=== PATIENT | female | born 1955 | race Caucasian/White ===

== ENCOUNTER 2018-12-15 18:42 | Inpatient (IN) | payer OTHER ==
[~2018-12-15] VITALS: Ht 160 cm; Wt 63.0 kg
--- NOTE | 2018-12-15 19:04 | NUR ---
[facility] CP SINCE 1315 HOURS. VOMITED X1 AT HOME. PATIENT A/OX4, AT BEDSIDE, KEPT COMFORTABLE IN BED, PLACED IN THE MONITOR. PER PATIENT, CHEST PAIN HAS IMPROVED SLIGHTLY. MD AT BEDSIDE FOR EVAL.
[2018-12-15] MEDS ORDERED: IV NS 0.9% 1,000 ML BAG IV ONE ×2 (19:30→21:30)
[2018-12-15 19:35] LABS: BASOPHILS % (AUTO) 0.5 % (0.0-2.0); EOSINOPHILS % (AUTO) 1.2 % (0.0-6.0); HEMATOCRIT 40 % (33-45); HEMOGLOBIN 13.6 g/dL (11.5-14.8); LYMPHOCYTES # (AUTO) 1.8 /CMM (0.8-4.8); LYMPHOCYTES % (AUTO) 19.5 % (20.0-44.0); MEAN CORPUSCULAR HGB CONC 34 g/dl (31.0-36.0); MEAN CORPUSCULAR VOLUME 92 fL (82-100); MONOCYTES # (AUTO) 0.6 /CMM (0.1-1.30); MONOCYTES % (AUTO) 6.8 % (2.0-12.0); NEUTROPHILS # (AUTO) 6.7 /CMM (1.8-8.9); PLATELET COUNT (AUTO) 245 /CMM (150-450); RED BLOOD CELL COUNT(AUTO) 4.29 MIL/uL (4.0-5.2); WHITE BLOOD COUNT (AUTO) 9.2 K/uL (4.3-11.0)
--- NOTE | 2018-12-15 19:46 | NUR ---
ENDORSED TO CECILIA CHRISTINE FOR JUSTINO.
[2018-12-15 19:48] LABS: ALANINE AMINOTRANSFERASE 140 U/L (12-78); ALBUMIN 3.7 g/dL (3.4-5.0); ALKALINE PHOSPHATASE 119 U/L (46-116); ASPARTATE AMINOTRANSFERASE 250 U/L (15-37); BILIRUBIN,DIRECT 0.9 mg/dL (0.0-0.2); CALCIUM, SERUM 8.8 mg/dL (8.5-10.1); CARBON DIOXIDE 31 mmol/L (21-32); CHLORIDE 107 mmol/L (98-107); CREATININE 0.9 mg/dL (0.6-1.3); GLUCOSE 123 mg/dL (74-106); POTASSIUM 3.7 mmol/L (3.5-5.1); SODIUM SERUM 144 mmol/L (136-145); TOTAL PROTEIN, SERUM 7.2 g/dL (6.4-8.2); UREA NITROGEN, BLOOD 12 mg/dL (7-18)
[2018-12-15 19:49] LABS: LIPASE 7228 U/L (73-393)
--- NOTE | 2018-12-15 20:32 | NUR ---
CALLED [facility] OCCUPATIONAL PHYSICIAN DOCTOR PAGED
[2018-12-15 20:38] LABS: APPEARANCE,URINE Clear (CLEAR); BILIRUBIN,URINE Negative (NEGATIVE); BLOOD, URINE Negative Ery/uL (NEGATIVE); COLOR,URINE Yellow (YELLOW); KETONES,URINE Negative (NEGATIVE); LEUKOCYTE ESTERASE ,URINE Negative (NEGATIVE); NITRITE, URINE Negative (NEGATIVE); PROTEIN,URINE Negative (NEGATIVE); UGLUCOSE Negative (NEGATIVE)
--- NOTE | 2018-12-15 21:19 | NUR ---
DR. BARBIE ALAS.
[2018-12-15] MEDS ORDERED: ONDANSETRON HCL/PF - ER 4 MG/2 ML VIAL IV ONE (21:30)
[2018-12-15] MEDS ORDERED: MORPHINE SULFATE INJ 2 MG/ML DISP.SYRIN IV ONE (21:30)
[2018-12-15] MEDS ORDERED: ONDANSETRON HCL/PF 4 MG/2 ML VIAL ONE (21:33)
[2018-12-15] MEDS ORDERED: MORPHINE SULFATE INJ 4 MG/ML DISP.SYRIN ONE (21:34)
--- NOTE | 2018-12-15 21:56 | NUR ---
CALLED DR. FITZGERALD AND LEFT MESSAGE
--- NOTE | 2018-12-15 22:14 | NUR ---
BED 321-1
[2018-12-15] MEDS ORDERED: PANT20TA2 PO (22:19)
--- NOTE | 2018-12-15 22:32 | NUR ---
REPORT GIVEN TO AGATHA CHRISTINE FOR JUSTINO.
--- NOTE | 2018-12-15 22:50 | NUR ---
MS RN NOTE DR. FITZGERALD CALLED FLOOR AWARE OF PT'S ARRIVAL TO FLOOR, STATES THAT T.O. GIVEN TO ER STAFF.
[2018-12-15 22:54] VITALS: BP 122/77
--- NOTE | 2018-12-15 22:54 | NUR ---
MS RN NOTE PT ARRIVED TO UNIT VIA W/C ACCOMPANIED BY ER STAFF. PT IN STABLE CONDITION A&O X4, ABLE TO MAKE NEEDS KNOWN. NO SIGNS OF SOB OR DISTRESS NO C/O PAIN. BODY CHECK DONE, AND BELONGINGS ACCOUNTED AND SIGNED FOR. IV SITE ON LAC PATENT AND INTACT. ALL CURRENT NEEDS MET. BED LOW, LOCKED, UPPER RAILS UP, AND CALL LIGHT WITHIN REACH. WILL CONT OT MONITOR.
[2018-12-15] MEDS ORDERED: ONDANSETRON HCL/PF 4 MG/2 ML VIAL IV PRN (23:30)
[2018-12-15] MEDS ORDERED: HYDROMORPHONE 1 MG/1 ML DISP.SYRIN IV PRN ×2 (23:30)
[2018-12-16] MEDS ORDERED: IV NS 0.9% 1,000 ML IV PRN
--- NOTE | 2018-12-16 06:35 | NUR ---
MS RN NOTE PT IN STABLE CONDITION A&O X4, ABLE TO MAKE NEEDS KNOWN. NO SIGNS OF SOB OR DISTRESS NO C/O PAIN. IV SITE ON LAC PATENT AND INTACT IVF INFUSING. ALL CURRENT NEEDS MET. BED LOW, LOCKED, UPPER RAILS UP, AND CALL LIGHT WITHIN REACH. WILL CONT OT MONITOR AND ENDORSE TO NEXT SHIFT FOR JUSTINO.
[2018-12-16 07:19] LABS: BASOPHILS % (AUTO) 0.5 % (0.0-2.0); EOSINOPHILS % (AUTO) 3.6 % (0.0-6.0); HEMATOCRIT 37 % (33-45); HEMOGLOBIN 12.6 g/dL (11.5-14.8); LYMPHOCYTES % (AUTO) 34.8 % (20.0-44.0); MEAN CORPUSCULAR HGB CONC 34 g/dl (31.0-36.0); MEAN CORPUSCULAR VOLUME 94 fL (82-100); MONOCYTES # (AUTO) 0.4 /CMM (0.1-1.30); MONOCYTES % (AUTO) 7.9 % (2.0-12.0); NEUTROPHILS % (AUTO) 53.2 % (43.0-81.0); PLATELET COUNT (AUTO) 215 /CMM (150-450); RED BLOOD CELL COUNT(AUTO) 3.98 MIL/uL (4.0-5.2); WHITE BLOOD COUNT (AUTO) 5.6 K/uL (4.3-11.0)
[2018-12-16 07:24] LABS: ALBUMIN 3.1 g/dL (3.4-5.0); BILIRUBIN,TOTAL 2.7 mg/dL (0.2-1.0); CALCIUM, SERUM 8.2 mg/dL (8.5-10.1); CREATININE 0.9 mg/dL (0.6-1.3); POTASSIUM 3.8 mmol/L (3.5-5.1); TOTAL PROTEIN, SERUM 6.1 g/dL (6.4-8.2)
[2018-12-16 08:00] VITALS: BP 128/73
--- NOTE | 2018-12-16 08:00 | NUR ---
MS/RN AM SHIFT INITIAL NOTES RECEIVED PT AWAKE SITTING IN BED, PT A/O X 4, NO ACUTE DISTRESS NOTED AT THIS TIME, DENIES ANY PDSNG9OR. ON ROOM AIR SATURATING @ 96% LUNG SOUNDS CLEAR, RESPIRATIONS EVEN & UNLABORED. WITH ON GOING IV INFUSION OF NS @ 100CC/HR, IV SITE PATENT WITH NO S/S OF INFECTION. SPOKE TO PT REGARDING THE PLAN OF CARE, ALSO GIVEN PRINTED EDUCATIONAL MATERIAL FOR ERCP. PT IS COMFORTABLE, MONITORING CONTINUED. CL WITHIN REACHED AND SAFETY MAINTAINED.
[2018-12-16] MEDS ORDERED: CYAN10009 PO (08:31)
[2018-12-16] MEDS ORDERED: ACET-868 PO (08:31)
--- NOTE | 2018-12-16 12:00 | NUR ---
MS/RN NOON ROUNDS NO ACUTE CHANGE OF CONDITION. MONITORING CONTINUED.
--- NOTE | 2018-12-16 15:03 | NUR ---
MS/RN ROUNDS - DR. FITZGERALD PT SEEN & EXAMINED BY DR. FITZGERALD, EXPLAINED ERCP AND MRCP PROCEDURES TO PT, PT VERBALIZED UNDERSTANDING. NO NEW ORDERS RECEIVED AT THIS TIME. MONITORING CONTINUED.
[2018-12-16 16:00] VITALS: BP 124/78
--- NOTE | 2018-12-16 18:00 | NUR ---
MS/FROZEN FOOD SELECTOR REPORT REPORT GIVEN TO AMAYA BOYLE RN OF [facility]. EXPECTED TIME OF WATER SANDER @ 1900.
[2018-12-16] MEDS ORDERED: IV 1/2NS 1000 ML 1,000 ML IV PRN (18:30)
--- NOTE | 2018-12-16 18:42 | NUR ---
MS/HAT PARTS CUTTER MACHINE PICK-UP REPORT AND DISCHARGE DOCUMENTS GIVEN TO TRANSPORT PERSONNEL. PERSONAL BELONGINGS RETURNED, INVENTORY LOG SIGNED OFF. IV SITE INTACT, PATENT WITH NO S/S OF INFECTION. PT LEFT MS UNIT VIA GURNEY ACCOMPANIED BY HER IN STABLE CONDITION.
== END 2018-12-16 18:50 | disposition short-term general hospital (02) | DRG 282 ==
LOC: ER 18:45 → MED 22:27
PROVIDERS: ADMIT Internal Medicine; ATTEND Internal Medicine
DX: K85.10 Biliary acute pancreatitis without necrosis or infection (principal); K21.9 Gastro-esophageal reflux disease without esophagitis; K80.20 Calculus of gallbladder without cholecystitis without obstruction; K85.20 Alcohol induced acute pancreatitis without necrosis or infection; Z82.49 Family history of ischemic heart disease and other diseases of the circulatory system
CPT/HCPCS: 36415; 71045-TC; 76700-TC; 80048-TC; 80053-TC; 80074; 80076-TC; 81000-TC; 82150-TC; 83690-TC; 84484-TC; 85025-TC; 85378-TC; 85730-TC; 87081-TC; 87086-TC; G0378; G0480; J1170; J2270; J2405; J7030

== ENCOUNTER 2021-05-03 19:28 | Emergency (ER) | payer MEDICARE, OTHER ==
[~2021-05-03 19:28] MED LIST: ACET-868 PO; CYAN-51 PO; PANT20TA2 PO
--- NOTE | 2021-05-03 22:18 | NUR ---
CALLED FOR TRIAGE NOT IN WAITING ROOM.
--- NOTE | 2021-05-03 23:19 | NUR ---
called for triage not in waitingroom.
== END 2021-05-03 23:20 | disposition left against medical advice (07) ==
LOC: ER 19:31
DX: Z53.21 Procedure and treatment not carried out due to patient leaving prior to being seen by health care provider (principal)

== ENCOUNTER 2021-08-20 01:19 | Emergency (ER) | payer MEDICARE, OTHER ==
[~2021-08-20] VITALS: Ht 160 cm; Wt 62.6 kg
--- NOTE | 2021-08-20 01:28 | NUR ---
PT BIBHUSBAND FROM HOME C/O COUGH FOR PAST 2 WEEK, EPIGASTIC PAIN. PT A/OX4. TOLERATING R/A WELL AT 96%. CONNECTED PT TO POX AND MONITOR.
--- NOTE | 2021-08-20 02:01 | NUR ---
LAW SPICER AT PT'S BEDSIDE
[2021-08-20] MEDS ORDERED: MAG HYDROX/AL HYDROX/SIMETH 30 ML UDC ONE (02:04)
[2021-08-20] MEDS ORDERED: LIDOCAINE VISCOUS 2% UD 15 ML UDC ONE (02:04)
[2021-08-20] MEDS ORDERED: GUAIFENESIN LA 600 MG TABLET.SA PO ONE ×2 (02:05→02:30)
[2021-08-20] MEDS ORDERED: LIDOCAINE VISCOUS 2% UD 15 ML UDC MM ONE (02:30)
[2021-08-20] MEDS ORDERED: MAG HYDROX/AL HYDROX/SIMETH 30 ML UDC PO ONE (02:30)
[2021-08-20] MEDS ORDERED: LEVO750T46 PO (03:47)
[2021-08-20] MEDS ORDERED: GUAI1TBM19 PO (03:47)
[2021-08-20] MEDS ORDERED: BENZ-13 PO (03:47)
--- NOTE | 2021-08-20 03:57 | NUR ---
Patient discharged to home in stable condition. Written and verbal after care instructions given. Patient verbalizes understanding of instruction.
[2021-08-20 03:58] VITALS: BP 137/79
[2021-08-26] MEDS ORDERED: ACET-907 PO (13:47)
== END 2021-08-20 03:59 | disposition home or self-care (01) ==
LOC: ER 01:21
DX: J18.9 Pneumonia, unspecified organism (principal); Z79.2 Long term (current) use of antibiotics; Z79.899 Other long term (current) drug therapy
CPT/HCPCS: 71045-TC

== ENCOUNTER 2021-08-23 23:16 | Inpatient (IN) | payer MEDICARE, OTHER ==
[~2021-08-23] VITALS: Ht 160 cm; Wt 61.7 kg
[~2021-08-23 23:16] MED LIST changes: +BENZ-13 PO; +GUAI1TBM19 PO; +LEVO750T46 PO
--- NOTE | 2021-08-23 23:32 | NUR ---
PRESENTED TO THE ER FOR C/O SOB AND L SIDED RIBS/ BREAST PAIN SINCE YESTERDAY. PT WAS SEEN AT [facility] ER ON 08/20 W/ DX ON PNA. CURRENTLY ON LEVAQUIN PO. AFEBRILE. PT WAS PLACED IN BED 3 ER, ON MONITOR. SATTING 91% ON RA. PT WAS PLACED ON 2 L OF O2 VIA NC, SATURATION INCREASED TO 95%. FULLY VACCINATED FOR COVID W/ BOOSTER. MADE AWARE.
--- NOTE | 2021-08-23 23:35 | NUR ---
DR ANDINO AT BED SIDE
[2021-08-23] MEDS ORDERED: CEFTRIAXONE 1GM BAG (ER ONLY) 50 ML IV ONE (23:37)
--- NOTE | 2021-08-23 23:40 | NUR ---
20G IV LINE INITIATED IN R AC. BLOOD AND CULTURES DRAWN AND SENT TO LAB.
[2021-08-23] MEDS ORDERED: ONDANSETRON HCL/PF 4 MG/2 ML VIAL ONE (23:44)
[2021-08-23] MEDS ORDERED: HYDROMORPHONE 1 MG/1 ML DISP.SYRIN ONE (23:45)
[2021-08-24] MEDS ORDERED: ONDANSETRON HCL/PF - ER 4 MG/2 ML VIAL IV ONE
[2021-08-24] MEDS ORDERED: LEVOFLOXACIN 750 MG /D5W 150ML 150 ML IV ONE
[2021-08-24] MEDS ORDERED: CEFTRIAXONE 1GM BAG (ER ONLY) 50 ML IV ONE
[2021-08-24] MEDS ORDERED: HYDROMORPHONE 1 MG/1 ML DISP.SYRIN IV ONE
--- NOTE | 2021-08-24 | NUR ---
XRAY AT BEDSIDE
--- NOTE | 2021-08-24 | NUR ---
MRSA SWAB COLLECTED AND SENT TO LAB. PATIENT'S BELONGINGS LIST DONE.
--- NOTE | 2021-08-24 00:01 | NUR ---
COVID TESTS SWABBED AND SENT TO LAB.
[2021-08-24 00:09] LABS: BASOPHILS % (AUTO) 0.5 % (0.0-2.0); EOSINOPHILS % (AUTO) 8.5 % (0.0-6.0); HEMATOCRIT 42 % (33-45); HEMOGLOBIN 14.1 g/dL (11.5-14.8); LYMPHOCYTES # (AUTO) 2.7 K/uL (0.8-4.8); LYMPHOCYTES % (AUTO) 25.3 % (20.0-44.0); MEAN CORPUSCULAR HGB CONC 34 g/dl (31.0-36.0); MEAN CORPUSCULAR VOLUME 91 fL (82-100); MONOCYTES # (AUTO) 0.5 K/uL (0.1-1.30); MONOCYTES % (AUTO) 4.5 % (2.0-12.0); NEUTROPHILS # (AUTO) 6.5 K/uL (1.8-8.9); NEUTROPHILS % (AUTO) 61.2 % (43.0-81.0); PLATELET COUNT (AUTO) 303 K/uL (150-450); RED BLOOD CELL COUNT(AUTO) 4.56 MIL/uL (4.0-5.2); WHITE BLOOD COUNT (AUTO) 10.6 K/uL (4.3-11.0)
--- NOTE | 2021-08-24 00:09 | NUR ---
SPUTUM CULTURE COLLECTED AND SENT TO LAB
--- NOTE | 2021-08-24 00:09 | NUR ---
UPDATED VALLECILLO () ON PT'S STATUS [phone]
[2021-08-24 00:54] LABS: CALCIUM, SERUM 8.9 mg/dL (8.5-10.1); CARBON DIOXIDE 28 mmol/L (21-32); CHLORIDE 94 mmol/L (98-107); GLUCOSE 121 mg/dL (74-106); POTASSIUM 3.5 mmol/L (3.5-5.1); SODIUM SERUM 130 mmol/L (136-145); UREA NITROGEN, BLOOD 8 mg/dL (7-18)
[2021-08-24 01:02] LABS: ALANINE AMINOTRANSFERASE 26 U/L (12-78); ALKALINE PHOSPHATASE 106 U/L (46-116); ASPARTATE AMINOTRANSFERASE 14 U/L (15-37); BILIRUBIN,DIRECT 0.1 mg/dL (0.0-0.2); BILIRUBIN,TOTAL 0.5 mg/dL (0.2-1.0)
[2021-08-24] MEDS ORDERED: IOHEXOL-350 100 ML VIAL IV ONE (01:23)
[2021-08-24] MEDS ORDERED: IV NS 0.9% 250 ML IV ONE (01:23)
--- NOTE | 2021-08-24 01:26 | NUR ---
PT TAKEN TO CT VIA QI
--- NOTE | 2021-08-24 01:39 | NUR ---
PT RETURNED FROM CT
[2021-08-24] MEDS ORDERED: diphenhydrAMINE HCL 50 MG/ML VIAL ONE (01:46)
[2021-08-24] MEDS ORDERED: METOCLOPRAMIDE HCL 10 MG/2 ML VIAL ONE (01:46)
[2021-08-24] MEDS ORDERED: diphenhydrAMINE HCL 50 MG/ML VIAL IV ONE (02:00)
[2021-08-24] MEDS ORDERED: METOCLOPRAMIDE HCL 10 MG/2 ML VIAL IV ONE (02:00)
--- NOTE | 2021-08-24 03:04 | NUR ---
PT SLEEPING COMOFORTABLY, EASILY [place] BREATHING EVEN AND UNLABORED. PT ON MONITOR AND ALL V/S STABLE. CALL LIGHT WITHIN REACH.
[2021-08-24] MEDS ORDERED: MAGNESIUM HYDROXIDE 30 ML UDC PO PRN (05:30)
[2021-08-24] MEDS ORDERED: ONDANSETRON HCL/PF 4 MG/2 ML VIAL IVP PRN (05:30)
[2021-08-24] MEDS ORDERED: MAG HYDROX/AL HYDROX/SIMETH 30 ML UDC PO PRN (05:30)
[2021-08-24] MEDS ORDERED: ACETAMINOPHEN 325 MG TABLET PO PRN (05:30)
[2021-08-24] MEDS ORDERED: ENOXAPARIN SODIUM 40 MG/0.4 ML DISP.SYRIN SQ SCH (06:00)
[2021-08-24] MEDS ORDERED: ENOXAPARIN SODIUM 40 MG/0.4 ML DISP.SYRIN SQ ONE (06:12)
--- NOTE | 2021-08-24 07:35 | NUR ---
PT LYING IN BED, AAOX4, BREATHIGN EVEN AND UNLABORED, NO PRESENT COMPLAINTS
[2021-08-24] MEDS: IV NS 0.9% 1,000 ML IV PRN ×2 (07:36→22:16)
[2021-08-24] MEDS ORDERED: BENZ-38 PO (08:44)
[2021-08-24] MEDS ORDERED: GUAI1TBM19 PO (08:44)
[2021-08-24] MEDS ORDERED: LEVO750T46 PO (08:44)
--- NOTE | 2021-08-24 09:13 | NUR ---
PT SITTING IN BED, BLANKETS GIVEN, DROPPED OFF MAGAZINE FOR PT TO READ
--- NOTE | 2021-08-24 10:43 | NUR ---
PT SITTING IN BED COMFORTABLY NO PRESENT COMPLAINTS, NEEDS MET
--- NOTE | 2021-08-24 12:07 | NUR ---
PT SITTING IN BED COMFORTABLY, READING MAGAZINE. AAOX4. NO PRESENT COMPLAINTS
--- NOTE | 2021-08-24 13:01 | NUR ---
PT LAYIGN IN BED COMFORTABLY, USING HER PHONE, VS STABLE
--- NOTE | 2021-08-24 14:08 | NUR ---
PT AMBULATED TO RESTROOM AND RETURNED. CONNECTED TO MONITOR. VS STABLE
--- NOTE | 2021-08-24 15:04 | NUR ---
IV FLUIDS INFUSING, PT TOLERATING WELL
--- NOTE | 2021-08-24 16:12 | NUR ---
PT SITTING IN BED COMFORTABLY
--- NOTE | 2021-08-24 17:15 | NUR ---
VS STABLE, AAOX4, PT USING CELL PHONE
--- NOTE | 2021-08-24 18:35 | NUR ---
PT REFUSED TB QUANTIFERON GOLD TEST
--- NOTE | 2021-08-24 19:55 | NUR ---
RECIEVED ROOM 109
--- NOTE | 2021-08-24 21:45 | NUR ---
REPORT GIVEN TO RICARDO
--- NOTE | 2021-08-24 21:51 | NUR ---
PTWAS TRANSFERRED TO 109 UNDER ACLS
[2021-08-24 22:00] VITALS: BP 122/67
--- NOTE | 2021-08-24 22:00 | NUR ---
FUR JOINER NOTES, RECEIVED 65 YEARS OLD FEMALE ADMITTED FROM ER DEPARTMENT,Richard FLORES ACCOMPANIED BY 2 NURSES, PATIENT UNDER MEDICAL SERVICES OF [facility]AUGHN BLEVINS NP, WITH ADMITTING DX HYPOXIA, PATIENT A/O X4, ON 2LPM VIA NC WITH O2 >95%, SLIGHTLY SOB UPON ADMISSION, C/O LEFT SIDED PAIN, WILL ADMINISTER MEDICATION ORDERED, AFEBRILE, SKIN INTACT, AMBULATORY, IV SITE IN RIGH AC 18G PATENT AND INTACT, IVF INFUSING ORDERED, BED S/R UP X2, BED LOCKED AND LOWEST POSITION, CALL LIGHT W/I REACH, WILL CONTINUE TO MONITOR CLOSELY.
[2021-08-24] MEDS: MORPHINE SULFATE INJ 2 MG/ML DISP.SYRIN IV PRN (22:21)
[2021-08-25] VITALS: BP 118/69
[2021-08-25 04:00] VITALS: BP 113/66
[2021-08-25] MEDS: IV NS 0.9% 1,000 ML IV PRN ×2 (04:59→19:59)
[2021-08-25] MEDS: MORPHINE SULFATE INJ 2 MG/ML DISP.SYRIN IV PRN ×2 (05:10→20:01)
[2021-08-25 06:52] LABS: BASOPHILS # (AUTO) 0.1 K/uL (0.0-0.2); BASOPHILS % (AUTO) 0.7 % (0.0-2.0); HEMATOCRIT 38 % (33-45); HEMOGLOBIN 12.9 g/dL (11.5-14.8); LYMPHOCYTES % (AUTO) 23.5 % (20.0-44.0); MEAN CORPUSCULAR HGB CONC 34 g/dl (31.0-36.0); MEAN CORPUSCULAR VOLUME 91 fL (82-100); MONOCYTES # (AUTO) 0.5 K/uL (0.1-1.30); MONOCYTES % (AUTO) 6.2 % (2.0-12.0); NEUTROPHILS # (AUTO) 3.4 K/uL (1.8-8.9); NEUTROPHILS % (AUTO) 40.1 % (43.0-81.0); PLATELET COUNT (AUTO) 267 K/uL (150-450); RED BLOOD CELL COUNT(AUTO) 4.15 MIL/uL (4.0-5.2); WHITE BLOOD COUNT (AUTO) 8.4 K/uL (4.3-11.0)
[2021-08-25 07:20] LABS: EOSINOPHILS % (AUTO) 29.5 % (0.0-6.0)
--- NOTE | 2021-08-25 07:25 | NUR ---
RN NOTE REPORT REC'D AT BEDSIDE FROM RICARDO CHRISTINE. PT IS AWAKE, ALERT, OX4. IN NO ACUTE DISTRESS. NO SOB. O2 AT 2LPM VIA NC. SAT AT97%. SR 75 ON TELE MONITOR. DENIES ANY NEED OR PAIN AT THIS TIME. IVF INFUSING WITHOUT DIFFICULTY ON RAC. SAFETY AND ISOLATION PRECAUTIONS OBSERVED. CALL LIGHT WITHIN REACH. WILL CONT. TO MONITOR.
[2021-08-25 07:29] LABS: CALCIUM, SERUM 8.8 mg/dL (8.5-10.1); CREATININE 0.9 mg/dL (0.6-1.3); MAGNESIUM 2.1 mg/dL (1.8-2.4); PHOSPHORUS 3.9 mg/dL (2.5-4.9); POTASSIUM 3.9 mmol/L (3.5-5.1)
[2021-08-25] MEDS: PANTOPRAZOLE 40 MG TABLET.DR PO SCH (08:12)
[2021-08-25] MEDS ORDERED: IV NS 0.9% 250 ML IV ONE (08:57)
[2021-08-25] MEDS ORDERED: IOHEXOL-300 100 ML VIAL IV ONE (08:57)
[2021-08-25] MEDS ORDERED: CT SWABBABLE VALVE TRANS SET 1 EA INFUS.SET MC ONE (08:57)
[2021-08-25 09:11] LABS: BAND % (MANUAL) 1 % (0.0-5.0); EOSINOPHILS % (MANUAL) 27 % (0-4); LYMPHOCYTES % (MANUAL) 24 % (16-48); MONOCYTES % (MANUAL) 6 % (0-11.0); NEUTROPHILS % (MANUAL) 42 (42-76)
--- NOTE | 2021-08-25 10:30 | NUR ---
RN NOTE PER CN KENYA ADVISE, PT WILL BE MOVED TO 2ND FLOOR. THUS TRANSFERRED PT VIA W/C WITH ALL HER BELONGINGS IN STABLE CONDITION. REPORT GIVEN TO AFIA Jewell RN.
[2021-08-25 13:52] VITALS: BP 141/70
--- NOTE | 2021-08-25 14:45 | NUR ---
RN NOTES RECEIVED 65 YEARS OLD FEMALE ADMITTED FROM [facility] DEPT, OXYGEN READING BETWEEN 94-98% PATIENT A/O X4, ON 2LPM VIA NC WITH O2, SOB ON AND OFF, C/O LEFT SIDED PAIN ON A SCALE OF 1 OUT OF 0-10 , AFEBRILE, SKIN INTACT, AMBULATORY, IV SITE IN RIGHT AC 18G PATENT - INTACT, IVF INFUSING ORDERED, BED S/R UP X2, BED WHEELS LOCKED AND BED LOWEST POSITION, CALL LIGHT WITHIN REACH, WILL CONTINUE TO MONITOR CLOSELY.
--- NOTE | 2021-08-25 18:57 | NUR ---
RN Notes repositioned for comfort pt able to help, bed linens changed, pt NPO strict at midnight 08/25/2021 for procedure in am, iv site intact easy to flush, pt able to make needs know A&O x 4, compliant with care and NPO, had sips of water and ice chips after breakfast, bed wheels locked, safety alarm on , educated to ask for help to transfer when in need of bath room, able to use call light and make needs known, tended to in a timely manner, will endorse NPO status to oncoming nurse.
[2021-08-25 20:00] VITALS: BP 120/59
[2021-08-26] VITALS: BP 132/78
[2021-08-26 04:00] VITALS: BP 141/59
--- NOTE | 2021-08-26 06:42 | NUR ---
NATURAL SCIENCES DEPARTMENT CHAIR NOTES AWAKE & RESPONSIVE. NOT IN ANY DISTRESS. NO SOB NOTED. DENIES ANY PAIN OR DISCOMFORT AT THIS TIME. ON TELE SR @ 75 WITH IVF INFUSING WELL. MONITORED ACCORDINGLY. CALL LIGHT WITHIN REACH. BED IN LOWEST POSITION. SR UP X 2 FOR SAFETY. WILL ENDORSE TO NEXT SHIFT.
--- NOTE | 2021-08-26 07:18 | NUR ---
SENIOR EDUCATION SPECIALIST OPENING NOTES RECEIVED PATIENT ALERT AND ORIENTED X4 WITH NO SIGNS OF DISTRESS. PATIENT ON OXYGEN AT 2 LPM VIA NASAL CANULA WITH AWAKE & RESPONSIVE. DENIES ANY PAIN OR DISCOMFORT AT THIS TIME. WITH IV ACCESS ON RIGHT AC 18 WITH IVF NS AT 75ML/HR. CALL LIGHT WITHIN REACH. BED IN LOWEST POSITION. SR UP X 3 WITH BED ALARM ON FOR SAFETY. WILL CONTINUE TO MONITOR PATIENT.
[2021-08-26] MEDS: PANTOPRAZOLE 40 MG TABLET.DR PO SCH (07:30)
--- NOTE | 2021-08-26 09:00 | NUR ---
OPTICAL FABRICATION TECHNICIAN NOTE SEEN BY DR. QUIROZ AND DR. SANDERSON.
--- NOTE | 2021-08-26 13:00 | NUR ---
COMIC BOOK DESIGNER NOTE SEEN BY DAVIDA BALDWIN. SHADY PUSH THROUGH WITH THE BIOPSY. VERBALIZED UNDERSTANDING. REQUESTING TO BE DISCHARGED. DR. QUIROZ NOTIFIED. AWAITING ORDERS. WILL CONTINUE TO MONITOR PATIENT.
--- NOTE | 2021-08-26 13:30 | NUR ---
CONSUMER RELATIONS COMPLAINT CLERK NOTE PATIENT FOR DISCHARGE ORDERED. HEALTH TEACHINGS DONE REGARDING DISCHARGE. VERBALIZED UNDERSTANDING AND APPRECIATION. WILL CONTINUE TO MONITOR PATIENT.
[2021-08-26] MEDS ORDERED: ACET-907 PO (13:47)
--- NOTE | 2021-08-26 18:30 | NUR ---
STOCKROOM SUPERVISOR NOTE PATIENT DISCHARGED ORDERED IV ACCESS REMOVED AND COVERED WITH DRY DRESSING. TOLERATED WELL. PATIENT ACCOMPANIED TO LOBBY BY NURSE IN STABLE CONDITION. IN STABLE CONDITION. ENDORSED ACCORDINGLY.
== END 2021-08-26 18:30 | disposition home or self-care (01) | DRG 204 ==
LOC: ER 23:21 → TRANSITION 08-24 03:14 → TELE1 08-24 19:57 → TELE2 08-25 10:41
PROVIDERS: ADMIT Internal Medicine; ATTEND Internal Medicine
DX: R07.81 Pleurodynia (principal); J96.01 Acute respiratory failure with hypoxia; E87.1 Hypo-osmolality and hyponatremia; J90 Pleural effusion, not elsewhere classified; J98.11 Atelectasis; Z20.822 Contact with and (suspected) exposure to COVID-19; K21.9 Gastro-esophageal reflux disease without esophagitis; R59.0 Localized enlarged lymph nodes; R91.1 Solitary pulmonary nodule; Z79.899 Other long term (current) drug therapy; N83.291 Other ovarian cyst, right side; E86.1 Hypovolemia; Z90.49 Acquired absence of other specified parts of digestive tract; Z90.710 Acquired absence of both cervix and uterus; Z87.01 Personal history of pneumonia (recurrent)
CPT/HCPCS: 36415; 71045-TC; 80048-TC; 80061-TC; 80076-TC; 82378; 83735-TC; 83880; 84100-TC; 84484-TC; 85025-TC; 85378-TC; 85610-TC; 85730-TC; 86480; 87040-TC; 87070-TC; 87081-TC; C9803; G0378; J0696; J1170; J1200; J1650; J2270; J2405; J2765; J7030; J7050; Q9967; U0003

== ENCOUNTER → 2021-08-31 | Outpatient (CLI) | payer MEDICARE, OTHER ==
[~2021-08-31] MED LIST changes: +ACET-907 PO; -BENZ-13 PO; +BENZ-38 PO
== END | disposition home or self-care (01) ==
LOC: CT 11:41
PROVIDERS: ATTEND Internal Medicine Hematology & Oncology
DX: J98.11 Atelectasis (principal); R91.8 Other nonspecific abnormal finding of lung field; M25.78 Osteophyte, vertebrae
CPT/HCPCS: 71250-TC

== ENCOUNTER 2021-09-15 14:44 | Outpatient (CLI) | payer MEDICARE, OTHER ==
[2021-09-15 15:13] LABS: BASOPHILS % (AUTO) 0.5 % (0.0-2.0); EOSINOPHILS % (AUTO) 10.9 % (0.0-6.0); HEMATOCRIT 41 % (33-45); HEMOGLOBIN 13.6 g/dL (11.5-14.8); LYMPHOCYTES % (AUTO) 31.6 % (20.0-44.0); MEAN CORPUSCULAR HGB CONC 34 g/dl (31.0-36.0); MEAN CORPUSCULAR VOLUME 92 fL (82-100); MONOCYTES # (AUTO) 0.4 K/uL (0.1-1.30); MONOCYTES % (AUTO) 6.7 % (2.0-12.0); NEUTROPHILS # (AUTO) 3.2 K/uL (1.8-8.9); NEUTROPHILS % (AUTO) 50.3 % (43.0-81.0); PLATELET COUNT (AUTO) 294 K/uL (150-450); RED BLOOD CELL COUNT(AUTO) 4.41 MIL/uL (4.0-5.2); WHITE BLOOD COUNT (AUTO) 6.3 K/uL (4.3-11.0)
[2021-09-15 16:03] LABS: ALBUMIN 3.6 g/dL (3.4-5.0); BILIRUBIN,TOTAL 0.5 mg/dL (0.2-1.0); CREATININE 0.9 mg/dL (0.6-1.3); POTASSIUM 4.3 mmol/L (3.5-5.1); TOTAL PROTEIN, SERUM 7.6 g/dL (6.4-8.2)
== END 2021-09-15 23:59 | disposition home or self-care (01) ==
LOC: LAB 14:44
PROVIDERS: ATTEND Internal Medicine Hematology & Oncology
DX: J18.9 Pneumonia, unspecified organism (principal)
CPT/HCPCS: 36415; 80053-TC; 85025-TC; 86304

== ENCOUNTER 2021-10-17 06:46 | Emergency (ER) | payer MEDICARE, OTHER ==
[~2021-10-17] VITALS: Ht 160 cm; Wt 60.8 kg
--- NOTE | 2021-10-17 07:10 | NUR ---
TO ER BED 6, BIBS C/O SOB AND PRODUCTIVE COUGH X MONDAY. HX OF PNA ON 08/22/21, DENIES ANY OTHER MEDICAL CONDITION, AAOX3, DENIES CHEST PAIN, CONNECTED TO MONITOR
--- NOTE | 2021-10-17 07:45 | NUR ---
SALINE LOCK ESTABLISHED, BLOOD DRAWN AND PICKED UP BY LAB
[2021-10-17] MEDS ORDERED: ASPIRIN EC 325 MG TABLET.DR PO ONE ×2 (07:53→08:00)
[2021-10-17] MEDS ORDERED: ALBUTEROL FS 2.5 MG/3 ML VIAL.NEB ONE (07:58)
[2021-10-17] MEDS ORDERED: ALBUTEROL FS 2.5 MG/3 ML VIAL.NEB NEB ONE (08:00)
--- NOTE | 2021-10-17 08:10 | NUR ---
COVID SWABS DONE AND SENT TO LAB
[2021-10-17 08:19] LABS: BASOPHILS # (AUTO) 0.1 K/uL (0.0-0.2); BASOPHILS % (AUTO) 0.6 % (0.0-2.0); EOSINOPHILS % (AUTO) 9.2 % (0.0-6.0); HEMATOCRIT 44 % (33-45); HEMOGLOBIN 14.4 g/dL (11.5-14.8); LYMPHOCYTES # (AUTO) 2.2 K/uL (0.8-4.8); MEAN CORPUSCULAR HGB CONC 33 g/dl (31.0-36.0); MEAN CORPUSCULAR VOLUME 91 fL (82-100); MONOCYTES # (AUTO) 0.6 K/uL (0.1-1.30); MONOCYTES % (AUTO) 5.4 % (2.0-12.0); NEUTROPHILS # (AUTO) 6.6 K/uL (1.8-8.9); NEUTROPHILS % (AUTO) 63.8 % (43.0-81.0); PLATELET COUNT (AUTO) 252 K/uL (150-450); RED BLOOD CELL COUNT(AUTO) 4.77 MIL/uL (4.0-5.2); WHITE BLOOD COUNT (AUTO) 10.4 K/uL (4.3-11.0)
[2021-10-17 08:37] LABS: BILIRUBIN,TOTAL 0.8 mg/dL (0.2-1.0); CALCIUM, SERUM 9.2 mg/dL (8.5-10.1); CREATININE 0.8 mg/dL (0.6-1.3); POTASSIUM 3.8 mmol/L (3.5-5.1); TOTAL PROTEIN, SERUM 7.9 g/dL (6.4-8.2)
[2021-10-17] MEDS ORDERED: IV NS 0.9% 250 ML IV ONE (09:06)
[2021-10-17] MEDS ORDERED: IOHEXOL-350 100 ML VIAL IV ONE (09:06)
[2021-10-17] MEDS ORDERED: DOXY100T2 PO (10:46)
[2021-10-17] MEDS ORDERED: AMOX-428 PO (10:46)
--- NOTE | 2021-10-17 11:13 | NUR ---
Patient discharged to home in stable condition. Rx,Written and verbal after care instructions given. Patient verbalizes understanding of instruction.IV removed. Catheter intact and site benign. Pressure and 4x4 applied to site. No bleeding noted.
[2021-10-17 11:14] VITALS: BP 132/80
[2021-10-23] MEDS ORDERED: BUDE10.2 INH (15:07)
[2021-10-23] MEDS ORDERED: ALBU8.5H8 INH (15:07)
[2021-10-23] MEDS ORDERED: METH4TAB17 PO (15:07)
== END 2021-10-17 11:14 | disposition home or self-care (01) ==
LOC: ER 06:59
DX: J18.9 Pneumonia, unspecified organism (principal); Z20.822 Contact with and (suspected) exposure to COVID-19; R06.02 Shortness of breath; R07.89 Other chest pain; K21.9 Gastro-esophageal reflux disease without esophagitis; Z79.899 Other long term (current) drug therapy
CPT/HCPCS: 36415; 71046; 71275; 80053; 84484; 85025; 85378; 87426; 93005; 94640; 94799; 99285; J7050; Q9967; C9803; U0003

== ENCOUNTER 2021-10-20 09:22 | Inpatient (IN) | payer MEDICARE, OTHER ==
[~2021-10-20] VITALS: Ht 160 cm; Wt 61.7 kg
[~2021-10-20 09:22] MED LIST changes: +AMOX-428 PO; +DOXY100T2 PO
--- NOTE | 2021-10-20 09:35 | NUR ---
THE PATIENT BIBS FOR C/O SOB SINCE MONDAY SINCE BEING DIAGNOSED W/ PNEUMONIA. OXYGEN SATURATION IN ROOM AIR IS AT 90%. RESPIRATION REGULAR AND UNLABORED. DENIES PAIN. ATTACHED TO THE MONITOR. WILL CONTINUE TO MONITOR THE PATIENT.
--- NOTE | 2021-10-20 10:19 | NUR ---
COVID ANTIGEN AND COVID PCR SWABS DONE AND SENT TO THE LAB
[2021-10-20 10:26] LABS: BASOPHILS % (AUTO) 0.3 % (0.0-2.0); EOSINOPHILS % (AUTO) 13.3 % (0.0-6.0); HEMATOCRIT 40 % (33-45); HEMOGLOBIN 13.4 g/dL (11.5-14.8); LYMPHOCYTES # (AUTO) 1.3 K/uL (0.8-4.8); LYMPHOCYTES % (AUTO) 12.8 % (20.0-44.0); MEAN CORPUSCULAR HGB CONC 34 g/dl (31.0-36.0); MEAN CORPUSCULAR VOLUME 90 fL (82-100); MONOCYTES # (AUTO) 0.6 K/uL (0.1-1.30); NEUTROPHILS # (AUTO) 6.9 K/uL (1.8-8.9); NEUTROPHILS % (AUTO) 67.6 % (43.0-81.0); PLATELET COUNT (AUTO) 220 K/uL (150-450); RED BLOOD CELL COUNT(AUTO) 4.43 MIL/uL (4.0-5.2); WHITE BLOOD COUNT (AUTO) 10.2 K/uL (4.3-11.0)
[2021-10-20 10:47] LABS: CALCIUM, SERUM 9.1 mg/dL (8.5-10.1); CREATININE 0.7 mg/dL (0.6-1.3); POTASSIUM 3.5 mmol/L (3.5-5.1)
[2021-10-20] MEDS ORDERED: methylPREDNISolone SOD SUCC 125 MG/2ML VIAL IV ONE (11:00)
[2021-10-20] MEDS ORDERED: ALBUTEROL FS 2.5 MG/3 ML VIAL.NEB NEB ONE (11:00)
[2021-10-20] MEDS ORDERED: methylPREDNISolone SOD SUCC 125 MG/2ML VIAL ONE (11:22)
[2021-10-20] MEDS ORDERED: ALBUTEROL FS 2.5 MG/3 ML VIAL.NEB ONE (11:25)
[2021-10-20] MEDS ORDERED: FAMO20TA8 PO (11:27)
--- NOTE | 2021-10-20 11:29 | NUR ---
RT AR BEDSIDE
--- NOTE | 2021-10-20 11:32 | NUR ---
PT RECEIVING BREATHING TREATMENT. TOLERATING WELL
--- NOTE | 2021-10-20 11:38 | NUR ---
MOVE SHEET SUBMITTED AND CALLED FOR BED.
--- NOTE | 2021-10-20 12:42 | NUR ---
[facility] CALLED BUSINESS ACCOUNT LEADER PAGED.
--- NOTE | 2021-10-20 15:19 | NUR ---
PT AMBULATED TO RESTROOM
--- NOTE | 2021-10-20 16:23 | NUR ---
GOT BED 101
--- NOTE | 2021-10-20 16:24 | NUR ---
ROOM CHANGED TO 103
--- NOTE | 2021-10-20 16:28 | NUR ---
REPORT GIVEN TO NANCI ELDER
--- NOTE | 2021-10-20 17:20 | NUR ---
PT TRANSFERRED TO FLOOR FOLLOWING ACLS PROTOCOL. PT REMAINED STABLE DURING TRANSFER.
--- NOTE | 2021-10-20 17:20 | NUR ---
CHEMISTRY ACCOUNT MANAGER NOTE ADMIT 66 YEAR OLD FEMALE TO ROOM 103 ON TELE MONITORING ALERT ORIENTED X4 VERBALLY RESPONSIVE ON 4L OXYGEN VIA NASAL CANNULA,O2:96% IV SITE IS ON RIGHT FOREARM INTACT PATENT,AMBULATORY,SKIN IS INTACT/CONTINET BOWEL/BLADDER.SAFETY MEASURE IMPLEMENT BED IN LOW POSITION AND LOCKED,CALL LIGHT WITHIN REACH CONTINUE TO MONITOR.
[2021-10-20 17:41] VITALS: BP 136/102
[2021-10-20 18:00] VITALS: BP 136/102
[2021-10-20] MEDS ORDERED: ACETAMINOPHEN 325 MG TABLET PO PRN (18:30)
[2021-10-20] MEDS ORDERED: ZOLPIDEM TARTRATE 5 MG TABLET PO PRN (18:30)
[2021-10-20] MEDS ORDERED: MAG HYDROX/AL HYDROX/SIMETH 30 ML UDC PO PRN (18:30)
[2021-10-20] MEDS ORDERED: MAGNESIUM HYDROXIDE 30 ML UDC PO PRN (18:30)
[2021-10-20] MEDS ORDERED: ONDANSETRON HCL/PF 4 MG/2 ML VIAL IVP PRN (18:30)
[2021-10-20] MEDS ORDERED: Z GUARD REMEDY 4 OZ OINT TP PRN (18:30)
[2021-10-20] MEDS: GUAIFENESIN/CODEINE 10 ML UDC PO PRN ×2 (18:53→22:55)
[2021-10-20] MEDS: IPRATROPIUM NEB FS 0.5 MG/2.5 ML AMPUL.NEB NEB SCH (19:30)
[2021-10-20] MEDS: ALBUTEROL FS 2.5 MG/3 ML VIAL.NEB NEB SCH ×2 (19:30→23:17)
[2021-10-20 20:00] VITALS: BP 130/76
[2021-10-20] MEDS: methylPREDNISolone SOD SUCC 125 MG/2ML VIAL IV SCH (20:22)
[2021-10-21] VITALS: BP 118/77
[2021-10-21] MEDS: IPRATROPIUM NEB FS 0.5 MG/2.5 ML AMPUL.NEB NEB SCH ×6 (01:30→23:28)
[2021-10-21] MEDS: ALBUTEROL FS 2.5 MG/3 ML VIAL.NEB NEB SCH ×6 (03:29→23:28)
[2021-10-21 04:00] VITALS: BP 137/81
[2021-10-21] MEDS: methylPREDNISolone SOD SUCC 125 MG/2ML VIAL IV SCH ×3 (04:33→20:17)
[2021-10-21 06:31] LABS: BASOPHILS % (AUTO) 0.2 % (0.0-2.0); EOSINOPHILS % (AUTO) 0.5 % (0.0-6.0); HEMATOCRIT 39 % (33-45); HEMOGLOBIN 13.2 g/dL (11.5-14.8); LYMPHOCYTES # (AUTO) 1.5 K/uL (0.8-4.8); LYMPHOCYTES % (AUTO) 20.3 % (20.0-44.0); MEAN CORPUSCULAR HGB CONC 34 g/dl (31.0-36.0); MEAN CORPUSCULAR VOLUME 90 fL (82-100); MONOCYTES # (AUTO) 0.2 K/uL (0.1-1.30); MONOCYTES % (AUTO) 2.1 % (2.0-12.0); NEUTROPHILS # (AUTO) 5.8 K/uL (1.8-8.9); NEUTROPHILS % (AUTO) 76.9 % (43.0-81.0); PLATELET COUNT (AUTO) 246 K/uL (150-450); RED BLOOD CELL COUNT(AUTO) 4.31 MIL/uL (4.0-5.2); WHITE BLOOD COUNT (AUTO) 7.5 K/uL (4.3-11.0)
--- NOTE | 2021-10-21 06:34 | NUR ---
RN NOTE PATIENT REMAINS ON ALERT ORIENTED X4 VERBALLY RESPONSIVE ON 4L OXYGEN VIA NASAL CANNULA, O2:96%.NO SOB NOT ACUTE DISTRESS NOTED, IV SITE IS ON RIGHT FOREARM INTACT PATENT,ALL DUE MEDS GIVEN MD ORDERED KEPT CALL LIGHT WITHIN REACH ALL NEEDS MET ENDORSE NEXT COMING SHIFT FOR CONTINUATION OF CARE
[2021-10-21 06:54] LABS: CALCIUM, SERUM 9.5 mg/dL (8.5-10.1); CREATININE 0.6 mg/dL (0.6-1.3); MAGNESIUM 2.1 mg/dL (1.8-2.4); PHOSPHORUS 3.9 mg/dL (2.5-4.9); POTASSIUM 4.1 mmol/L (3.5-5.1)
[2021-10-21] MEDS: PANTOPRAZOLE 40 MG TABLET.DR PO SCH (07:39)
[2021-10-21 08:00] VITALS: BP 130/76
--- NOTE | 2021-10-21 08:00 | NUR ---
RT NOTE TX NOT GIVEN AT THIS TIME. PCR PENDING.
[2021-10-21 12:00] VITALS: BP 101/65
[2021-10-21] MEDS: GUAIFENESIN/CODEINE 10 ML UDC PO PRN ×2 (12:20→20:17)
[2021-10-21 16:00] VITALS: BP 125/71
--- NOTE | 2021-10-21 19:31 | NUR ---
RN NOTES RECEIVED PT FOR CONTINUITY OF CARE. PATIENT A/OX4 IN NO S/SX OF ACUTE DISTRESS AT THIS TIME; CURRENTLY ON 4L OF 02 VIA NC; WITH 02 SAT >95% AT THIS TIME. WILL ENSURE SAFETY MEASURES WITHIN THE SHIFT. PATIENT BED ALARM IS ON. HEAD OF BED ELEVATED. BED IS LOCKED, IN LOWEST POSITION AND SIDE RAILS UP. CALL LIGHT WITHIN REACH OF THE PATIENT. APPLICABLE ISOLATION PRECAUTIONS IN PLACE. WILL CONTINUE TO MONITOR AND REASSESS FOR ANY CHANGES AND WILL CARRY OUT ANY ONGOING AND ACTIVE MD ORDER.
--- NOTE | 2021-10-21 19:38 | NUR ---
RN NOTE PATIENT REMAINED STABLE THIS SHIFT. ALERT ORIENTED X4 VERBALLY RESPONSIVE ON 4L OXYGEN VIA NASAL CANNULA, O2:97%.NO SOB NOT ACUTE DISTRESS NOTED, IV SITE IS ON RIGHT FOREARM INTACT PATENT,ALL DUE MEDS GIVEN. AM CARE RENDERED.KEPT CALL LIGHT WITHIN REACH ALL NEEDS MET. WILL ENDORSE NEXT COMING SHIFT FOR CONTINUATION OF CARE
[2021-10-21 20:00] VITALS: BP 115/73
[2021-10-22] VITALS: BP 129/73
--- NOTE | 2021-10-22 02:00 | NUR ---
RN NOTES PATIENT REMAINED TO BE IN NO SIGNS OF ACUTE RESPIRATORY DISTRESS , SAFE ENVIRONMENT MAINTAINED FOR PT. WILL CONTINUE TO MONITOR AND REASSESS FOR ANY CHANGES THROUGHOUT THE SHIFT.
[2021-10-22] MEDS: ALBUTEROL FS 2.5 MG/3 ML VIAL.NEB NEB SCH ×6 (03:30→23:45)
[2021-10-22] MEDS: IPRATROPIUM NEB FS 0.5 MG/2.5 ML AMPUL.NEB NEB SCH ×6 (03:30→23:45)
[2021-10-22 04:00] VITALS: BP 135/74
[2021-10-22] MEDS: methylPREDNISolone SOD SUCC 125 MG/2ML VIAL IV SCH ×3 (04:45→20:58)
--- NOTE | 2021-10-22 06:40 | NUR ---
RN CLOSING NOTE: PATIENT REMAINS IN ROOM IN NO SIGNS OF RESPIRATORY DISTRESS, PATIENT STILL ON 4L OF 02 VIA NC;TOLERATING WELL SATURATING @ >95% SP02. SAFETY MEASURES IMPLEMENTED, BED IN LOWEST POSITION, LOCKED, SIDE RAILS UP, CALL LIGHT WITHIN REACH. ALL NEEDS AND ORDERS ADDRESSED DURING THE SHIFT. IV ACCESS MAINTAINED INTACT, SECURED AND FLUSHING WELL. ALL DUE MEDS GIVEN ORDERED & SCHEDULED ; PATIENT TOLERATED WELL. PATIENT KEPT CLEAN AND COMFORTABLE WITHIN THE SHIFT. PATIENT ENDORSED TO INCOMING SHIFT RN WITH STABLE VITAL SIGN AND FOR CONTINUITY OF CARE.
[2021-10-22] MEDS: GUAIFENESIN/CODEINE 10 ML UDC PO PRN (06:58)
[2021-10-22 06:59] LABS: CALCIUM, SERUM 9.3 mg/dL (8.5-10.1); CREATININE 0.7 mg/dL (0.6-1.3); MAGNESIUM 2.3 mg/dL (1.8-2.4); PHOSPHORUS 3.9 mg/dL (2.5-4.9); POTASSIUM 4.4 mmol/L (3.5-5.1)
[2021-10-22 07:22] LABS: BASOPHILS % (AUTO) 0.1 % (0.0-2.0); EOSINOPHILS % (AUTO) 0.1 % (0.0-6.0); HEMATOCRIT 38 % (33-45); HEMOGLOBIN 12.8 g/dL (11.5-14.8); LYMPHOCYTES # (AUTO) 1.9 K/uL (0.8-4.8); MEAN CORPUSCULAR HGB CONC 34 g/dl (31.0-36.0); MEAN CORPUSCULAR VOLUME 90 fL (82-100); MONOCYTES # (AUTO) 0.4 K/uL (0.1-1.30); MONOCYTES % (AUTO) 2.6 % (2.0-12.0); NEUTROPHILS # (AUTO) 13.1 K/uL (1.8-8.9); NEUTROPHILS % (AUTO) 85.2 % (43.0-81.0); PLATELET COUNT (AUTO) 278 K/uL (150-450); RED BLOOD CELL COUNT(AUTO) 4.24 MIL/uL (4.0-5.2); WHITE BLOOD COUNT (AUTO) 15.4 K/uL (4.3-11.0)
[2021-10-22] MEDS: PANTOPRAZOLE 40 MG TABLET.DR PO SCH (07:32)
--- NOTE | 2021-10-22 07:42 | NUR ---
RN NOTE PATIENT RECEIVED AWAKE IN BED. ALERT ORIENTED X4 VERBALLY RESPONSIVE ON 4L OXYGEN VIA NASAL CANNULA, NOT IN RESPIRATORY DISTRESS. IV SITE ON RIGHT FOREARM INTACT AND PATENT. CALL LIGHT WITHIN REACH. WILL CONTINUE TO MONITOR.
[2021-10-22 08:00] VITALS: BP 128/71
[2021-10-22] MEDS: BENZONATATE 100 MG CAPSULE PO PRN ×2 (10:37→16:29)
[2021-10-22 12:00] VITALS: BP 113/62
[2021-10-22 16:00] VITALS: BP 128/68
--- NOTE | 2021-10-22 18:26 | NUR ---
RN NOTE PATIENT REMAINED STABLE THIS SHIFT. ALERT ORIENTED X4. CONTINUES ON O2 @ 4L OXYGEN VIA NASAL CANNULA, O2:99%.NO SOB NOT ACUTE DISTRESS NOTED, IV SITE IS ON RIGHT FOREARM INTACT PATENT,ALL DUE MEDS GIVEN. AM CARE RENDERED.KEPT CALL LIGHT WITHIN REACH ALL NEEDS MET. WILL ENDORSE NEXT COMING SHIFT FOR CONTINUATION OF CARE
[2021-10-22 20:00] VITALS: BP 106/70
[2021-10-23] VITALS: BP 133/76
--- NOTE | 2021-10-23 03:05 | NUR ---
RN NOTES PT COMPLAINED OF CHEST PAIN UPON WAKING UP (DESCRIBED PRESSURE IN THE CHEST) WITH PALPITATIONS. VITALS CURRENT VITALS FOLLOWS: BP 133/72, HR: 89 RR: 23 o2 SAT 99%, PT ON 4L 0F 02 VIA NC. NOTIFIED ANUJA SPICER (DAVIDA MENG) AND PROVIDED UPDATES ABOUT PT, ORDER GIVEN FOR STAT ABG AND TROPONIN. WILL CARRY OUT ORDER; COORDINATED WITH RT AND LAB. KEVIN CHRISTINE MADE AWARE. Addendum: 10/23/21 at 0347 by JOHANA RICKS RN EKG RESULT SENT TO ANUJA SPICER (DAVIDA MENG) , TROPONIN RESULT STILL IN PROCESS. ALSO ADVISED THAT PER PT HE CHEST PAIN WENT DOWN AND NO MORE PALPITATIONS. NO FURTHER ORDERS PER ANUJA SPICER; WILL CONTINUE TO MONITOR AND SEND TROPONIN RESULT ONCE AVAILABLE. KEVIN CHRISTINE MADE AWARE. Addendum: 10/23/21 at 0625 by JOHANA RICKS RN @[id number] NOTIFIED ONCJUANI SPICER (DAVIDA MENG) REGARDING TROPONIN RESULT (20) ACKNOWLEDGED.
[2021-10-23 04:00] VITALS: BP 133/72
[2021-10-23] MEDS: IPRATROPIUM NEB FS 0.5 MG/2.5 ML AMPUL.NEB NEB SCH ×4 (04:03→15:30)
[2021-10-23] MEDS: ALBUTEROL FS 2.5 MG/3 ML VIAL.NEB NEB SCH ×4 (04:03→15:30)
[2021-10-23 04:10] LABS: BASOPHILS % (AUTO) 0.1 % (0.0-2.0); HEMATOCRIT 37 % (33-45); HEMOGLOBIN 12.7 g/dL (11.5-14.8); LYMPHOCYTES % (AUTO) 9.4 % (20.0-44.0); MEAN CORPUSCULAR HGB CONC 34 g/dl (31.0-36.0); MEAN CORPUSCULAR VOLUME 90 fL (82-100); MONOCYTES # (AUTO) 0.2 K/uL (0.1-1.30); MONOCYTES % (AUTO) 1.9 % (2.0-12.0); NEUTROPHILS # (AUTO) 9.6 K/uL (1.8-8.9); NEUTROPHILS % (AUTO) 88.6 % (43.0-81.0); PLATELET COUNT (AUTO) 262 K/uL (150-450); RED BLOOD CELL COUNT(AUTO) 4.14 MIL/uL (4.0-5.2); WHITE BLOOD COUNT (AUTO) 10.8 K/uL (4.3-11.0)
[2021-10-23] MEDS: methylPREDNISolone SOD SUCC 125 MG/2ML VIAL IV SCH ×2 (04:13→12:11)
[2021-10-23 04:25] LABS: MAGNESIUM 2.2 mg/dL (1.8-2.4); PHOSPHORUS 3.1 mg/dL (2.5-4.9); POTASSIUM 4.2 mmol/L (3.5-5.1)
[2021-10-23 04:30] LABS: CALCIUM, SERUM 9.3 mg/dL (8.5-10.1); CREATININE 0.8 mg/dL (0.6-1.3)
[2021-10-23] MEDS: PANTOPRAZOLE 40 MG TABLET.DR PO SCH (07:33)
[2021-10-23 08:00] VITALS: BP 127/70
[2021-10-23] MEDS: BENZONATATE 100 MG CAPSULE PO PRN (11:15)
[2021-10-23 12:00] VITALS: BP 137/70
[2021-10-23] MEDS ORDERED: BUDE10.2 INH (15:07)
[2021-10-23] MEDS ORDERED: ALBU8.5H8 INH (15:07)
[2021-10-23] MEDS ORDERED: METH4TAB17 PO (15:07)
[2021-10-23 16:00] VITALS: BP 135/71
--- NOTE | 2021-10-23 17:03 | NUR ---
RN NOTE PT LEFT UNIT FOR D/C TO HOME AT AROUND 1640. PT IN RA. NO COMPLAINTS OF CHEST PAIN, NO SOB. ACCOMPANIED BY . D/C INSTRUCTIONS GIVEN AND VERBALIZED UNDERSTANDING.
== END 2021-10-23 18:49 | disposition home or self-care (01) | DRG 189 ==
LOC: ER 09:23 → TRANSITION 13:41 → MEDSG1 16:25 → TELE1 19:06
PROVIDERS: ADMIT Student in an Organized Health Care Education/Training Program; ATTEND Student in an Organized Health Care Education/Training Program
DX: J96.01 Acute respiratory failure with hypoxia (principal); E87.1 Hypo-osmolality and hyponatremia; J45.909 Unspecified asthma, uncomplicated; Z20.822 Contact with and (suspected) exposure to COVID-19; Z87.01 Personal history of pneumonia (recurrent); Z79.899 Other long term (current) drug therapy; R91.1 Solitary pulmonary nodule
CPT/HCPCS: 36415; 70220-TC; 71045-TC; 80048-TC; 83735-TC; 84100-TC; 84484-TC; 85025-TC; 87040-TC; 87081-TC; 94799-TC; C9803; G0378; J2930; J7030; U0003

== ENCOUNTER 2022-04-25 15:08 | Emergency (ER) | payer MEDICARE, OTHER ==
[~2022-04-25] VITALS: Ht 160 cm; Wt 65.8 kg
[2022-04-25 15:08] VITALS: BP 124/74
[~2022-04-25 15:08] MED LIST changes: -ACET-907 PO; +ALBU8.5H8 INH; -AMOX-428 PO; +BUDE10.2 INH; -CYAN-51 PO; -DOXY100T2 PO; +FAMO20TA8 PO; -GUAI1TBM19 PO; -LEVO750T46 PO; +METH4TAB17 PO; -PANT20TA2 PO
--- NOTE | 2022-04-25 15:08 | NUR ---
BIB C/ COUGH AND CONGESTION [id number]. VITALS ARE WITHIN NORMAL LIMITS, NO RESP DISTRESS NOTED. AFEBRILE. AWAITING MD ORDERS.
[2022-04-25] MEDS ORDERED: FLUT1BLS11 IH (18:01)
[2022-04-25] MEDS ORDERED: BENZ-13 PO (18:01)
[2022-04-25] MEDS ORDERED: PSEU-310 PO (18:01)
[2022-04-25] MEDS ORDERED: PSEU120T57 PO (18:01)
[2022-04-25] MEDS ORDERED: AMOX-430 PO (18:01)
--- NOTE | 2022-04-25 18:10 | NUR ---
Patient discharged to home in stable condition. Written and verbal after care instructions given. Patient verbalizes understanding of instruction.
== END 2022-04-25 18:14 | disposition home or self-care (01) ==
LOC: ER 15:10
DX: J01.90 Acute sinusitis, unspecified (principal); R09.82 Postnasal drip; J45.909 Unspecified asthma, uncomplicated; Z86.16 Personal history of COVID-19; Z79.899 Other long term (current) drug therapy
CPT/HCPCS: 71045-TC

== ENCOUNTER → 2022-09-23 | Emergency (ER) | payer MEDICARE, OTHER ==
[~2022-09-23] VITALS: Ht 160 cm; Wt 54.9 kg
[~2022-09-23] MED LIST changes: +AMOX-430 PO; +BENZ-13 PO; +FLUT1BLS11 IH; +METH4TAB3 PO; +PSEU-310 PO; +PSEU120T57 PO
--- NOTE | 2022-09-23 14:51 | NUR ---
PT IN ROOM #3. A/Ox4, C/O PERIORBITAL SWELLING , VSS STABLE, AWAITING FOR MD TO SEE .
--- NOTE | 2022-09-23 15:03 | NUR ---
DR CRUZ AT BEDSIDE FOR EVAL
--- NOTE | 2022-09-23 15:09 | NUR ---
DR CRUZ AT THE BEDSIDE
--- NOTE | 2022-09-23 15:43 | NUR ---
DPatient discharged to home in stable condition. Written and verbal after care instructions given. Patient verbalizes understanding of instruction.
[2022-09-23 15:44] VITALS: BP 130/72
== END | disposition home or self-care (01) ==
LOC: ER 14:28
DX: L53.9 Erythematous condition, unspecified (principal); R22.0 Localized swelling, mass and lump, head; Z79.899 Other long term (current) drug therapy

== ENCOUNTER 2023-04-19 14:58 | Emergency (ER) | payer MEDICARE, OTHER ==
[~2023-04-19] VITALS: Ht 160 cm; Wt 65.8 kg
[2023-04-19] MEDS ORDERED: predniSONE 20 MG TABLET ONE (15:33)
[2023-04-19] MEDS: ALBUTEROL FS 2.5 MG/3 ML VIAL.NEB NEB ONE (15:46)
[2023-04-19] MEDS: IPRATROPIUM NEB FS 0.5 MG/2.5 ML AMPUL.NEB NEB ONE (15:46)
[2023-04-19] MEDS: predniSONE 20 MG TABLET PO ONE (15:46)
[2023-04-19] MEDS ORDERED: ALBUTEROL FS 2.5 MG/3 ML VIAL.NEB ONE (15:51)
[2023-04-19] MEDS ORDERED: IPRATROPIUM NEB FS 0.5 MG/2.5 ML AMPUL.NEB ONE (15:51)
[2023-04-19 15:57] VITALS: O2SAT 97
[2023-04-19] MEDS ORDERED: PRED20TA PO (17:03)
[2023-04-19] MEDS ORDERED: ALBU18HF2 INH (17:03)
[2023-04-19 17:10] VITALS: O2SAT 99
[2023-04-19 17:45] VITALS: BP_SYST 87; TEMP 98.1; O2SAT 99
== END 2023-04-19 17:45 | disposition home or self-care (01) ==
LOC: ER 15:23
DX: J45.901 Unspecified asthma with (acute) exacerbation (principal); J06.9 Acute upper respiratory infection, unspecified; Z79.51 Long term (current) use of inhaled steroids; Z79.52 Long term (current) use of systemic steroids; Z79.899 Other long term (current) drug therapy; Z20.822 Contact with and (suspected) exposure to COVID-19
CPT/HCPCS: 99285; 71045; 87426; 94799; 94644; J7512; C9803

== ENCOUNTER 2023-05-30 14:57 | Emergency (ER) | payer MEDICARE, OTHER ==
[~2023-05-30] VITALS: Ht 160 cm; Wt 65.8 kg
[~2023-05-30 14:57] MED LIST changes: +ALBU18HF2 INH; +PRED20TA PO
[2023-05-30 18:56] LABS: BASOPHILS % (AUTO) 0.4 % (0.0-2.0); EOSINOPHILS # (AUTO) 0.5 K/uL (0.0-0.7); EOSINOPHILS % (AUTO) 5.1 % (0.0-6.0); HEMATOCRIT 42 % (33-45); HEMOGLOBIN 13.9 g/dL (11.5-14.8); LYMPHOCYTES # (AUTO) 2.4 K/uL (0.8-4.8); LYMPHOCYTES % (AUTO) 23.4 % (20.0-44.0); MEAN CORPUSCULAR HEMOGLOBIN 31 PG (26.0-33.0); MEAN CORPUSCULAR HGB CONC 33 g/dl (31.0-36.0); MEAN CORPUSCULAR VOLUME 94 fL (82-100); MONOCYTES # (AUTO) 0.4 K/uL (0.1-1.30); MONOCYTES % (AUTO) 4.2 % (2.0-12.0); NEUTROPHILS # (AUTO) 6.9 K/uL (1.8-8.9); NEUTROPHILS % (AUTO) 66.9 % (43.0-81.0); PLATELET COUNT (AUTO) 252 K/uL (150-450); RED BLOOD CELL COUNT(AUTO) 4.49 MIL/uL (4.0-5.2); WHITE BLOOD COUNT (AUTO) 10.3 K/uL (4.3-11.0)
[2023-05-30 19:09] LABS: INR 0.95 (0.91-1.10); PARTIAL THROMBOPLASTIN TIME 27.6 SEC (24.3-34.3); PROTHROMBIN TIME 10.1 SECS (9.2-11.1)
[2023-05-30 19:16] LABS: CREATININE 0.8 mg/dL (0.6-1.3); POTASSIUM 4.6 mmol/L (3.5-5.1)
[2023-05-30 19:54] LABS: APPEARANCE,URINE TURBID (CLEAR); BILIRUBIN,URINE NEGATIVE (NEGATIVE); BLOOD, URINE 1+ Ery/uL (NEGATIVE); COLOR,URINE YELLOW (YELLOW); KETONES,URINE NEGATIVE (NEGATIVE); LEUKOCYTE ESTERASE ,URINE 2+ (NEGATIVE); NITRITE, URINE NEGATIVE (NEGATIVE); PH,URINE 8.5 (5.0-8.0); PROTEIN,URINE NEGATIVE (NEGATIVE); UGLUCOSE NEGATIVE (NEGATIVE); UROBILINOGEN,URINE 0.2 EU/dL (0.2)
[2023-05-30 20:46] LABS: ADD URINE CULTURE YES; BACTERIA,URINE Moderate /HPF (None Seen); SQUAMOUS EPITHELIAL CELL,UR Few /HPF (None Seen); URINE AMORPHOUS URATE Moderate /HPF (None Seen)
[2023-05-30] MEDS ORDERED: NITR100C6 PO (21:01)
[2023-05-30 21:05] VITALS: BP 125/72; TEMP 98; O2SAT 96
== END 2023-05-30 21:05 | disposition home or self-care (01) ==
LOC: ER 14:57
DX: N39.0 Urinary tract infection, site not specified (principal); J45.909 Unspecified asthma, uncomplicated; Z79.899 Other long term (current) drug therapy
CPT/HCPCS: 36415; 76856-TC; 80048-TC; 81001; 85025-TC; 85730-TC; 86850-TC; 87086-TC

== ENCOUNTER 2023-08-07 13:46 | Emergency (ER) | payer MEDICARE, OTHER ==
[~2023-08-07] VITALS: Ht 160 cm; Wt 64.9 kg
[~2023-08-07 13:46] MED LIST changes: +NITR100C6 PO
[2023-08-07 14:23] VITALS: TEMP 98.1
[2023-08-07] MEDS ORDERED: ALBUTEROL FS 2.5 MG/3 ML VIAL.NEB ONE (14:56)
[2023-08-07] MEDS ORDERED: IPRATROPIUM NEB FS 0.5 MG/2.5 ML AMPUL.NEB ONE (14:56)
[2023-08-07] MEDS: predniSONE 20 MG TABLET PO ONE (15:00)
[2023-08-07 15:02] VITALS: O2SAT 96
[2023-08-07] MEDS: ALBUTEROL FS 2.5 MG/3 ML VIAL.NEB NEB ONE (15:02)
[2023-08-07] MEDS: IPRATROPIUM NEB FS 0.5 MG/2.5 ML AMPUL.NEB NEB ONE (15:02)
[2023-08-07] MEDS ORDERED: predniSONE 20 MG TABLET ONE (15:10)
[2023-08-07 15:18] VITALS: O2SAT 98
[2023-08-07] MEDS ORDERED: PRED50TA PO (15:58)
[2023-08-07] MEDS ORDERED: ALBU8.5H8 INH (15:58)
[2023-08-07] MEDS ORDERED: GUAI-671 PO (15:58)
[2023-08-07 16:06] VITALS: BP 110/70; O2SAT 97
== END 2023-08-07 16:09 | disposition home or self-care (01) ==
LOC: ER 13:55
DX: J45.901 Unspecified asthma with (acute) exacerbation (principal); Z79.899 Other long term (current) drug therapy
CPT/HCPCS: 99283; 71045; 94640; J7512

== ENCOUNTER 2023-09-12 02:09 | Emergency (ER) | payer MEDICARE, OTHER ==
[~2023-09-12] VITALS: Ht 160 cm; Wt 64.4 kg
[~2023-09-12 02:09] MED LIST changes: +GUAI-671 PO; +PRED50TA PO
[2023-09-12 02:17] VITALS: TEMP 98.3
[2023-09-12] MEDS ORDERED: methylPREDNISolone SOD SUCC 125 MG/2ML VIAL IV ONE (02:30)
[2023-09-12] MEDS ORDERED: ALBUTEROL FS 2.5 MG/3 ML VIAL.NEB CONTNEB ONE (03:00)
[2023-09-12 03:05] VITALS: O2SAT 99
[2023-09-12] MEDS ORDERED: ALBUTEROL FS 2.5 MG/3 ML VIAL.NEB ONE (03:07)
[2023-09-12 03:13] LABS: BASOPHILS # (AUTO) 0.1 K/uL (0.0-0.2); BASOPHILS % (AUTO) 0.7 % (0.0-2.0); EOSINOPHILS # (AUTO) 0.3 K/uL (0.0-0.7); EOSINOPHILS % (AUTO) 4.3 % (0.0-6.0); HEMATOCRIT 38 % (33-45); HEMOGLOBIN 12.9 g/dL (11.5-14.8); LYMPHOCYTES # (AUTO) 3.1 K/uL (0.8-4.8); MEAN CORPUSCULAR HEMOGLOBIN 31 PG (26.0-33.0); MEAN CORPUSCULAR HGB CONC 34 g/dl (31.0-36.0); MEAN CORPUSCULAR VOLUME 92 fL (82-100); MONOCYTES # (AUTO) 0.5 K/uL (0.1-1.30); MONOCYTES % (AUTO) 6.6 % (2.0-12.0); NEUTROPHILS # (AUTO) 3.5 K/uL (1.8-8.9); NEUTROPHILS % (AUTO) 46.4 % (43.0-81.0); PLATELET COUNT (AUTO) 236 K/uL (150-450); RED BLOOD CELL COUNT(AUTO) 4.09 MIL/uL (4.0-5.2); RED CELL DISTRIBUTION WIDTH 13.2 % (11.5-15.0); WHITE BLOOD COUNT (AUTO) 7.5 K/uL (4.3-11.0)
[2023-09-12] MEDS ORDERED: methylPREDNISolone SOD SUCC 125 MG/2ML VIAL ONE (03:19)
[2023-09-12 03:27] LABS: CREATININE 0.8 mg/dL (0.6-1.3); LACTIC ACID 0.8 mmol/L (0.4-2.0); POTASSIUM 3.5 mmol/L (3.5-5.1)
[2023-09-12 03:37] LABS: ALBUMIN 3.5 g/dL (3.4-5.0); BILIRUBIN,TOTAL 0.5 mg/dL (0.2-1.0)
[2023-09-12] MEDS ORDERED: PRED20TA PO (05:09)
[2023-09-12 06:52] VITALS: BP 132/79; O2SAT 99
[2023-09-12 08:56] LABS: ABG BASE EXCESS -1.3 mmol/L; ABG OXYGEN SATURATION 97.9 % (92.0-98.5); ABG PCO2 41.3 mmHg (35.0-45.0); ABG PH 7.378 (7.350-7.450); ABG PO2 114.3 mmHg (75.0-100.0); ABG TOTAL HEMOGLOBIN 13.6 G/dL (12.0-16.0); COHb 0.3 % (0.5-1.5); MetHb 0.3 % (0.0-1.5); O2Hb 97.3 % (94.0-97.0); SITE, ABG Right Brachial; VENT MODE, BG NASAL CANNULA
== END 2023-09-12 06:54 | disposition home or self-care (01) ==
LOC: ER 02:11
DX: J45.901 Unspecified asthma with (acute) exacerbation (principal); Z79.899 Other long term (current) drug therapy; Z20.822 Contact with and (suspected) exposure to COVID-19
CPT/HCPCS: 99285; 96374; 71045; 87426; 93005; 82803; 85025; 83605; 36415; 80053; 84484; 83880; 36600 ×2; 94799; 94640; J2930

== ENCOUNTER 2024-07-22 19:17 | Emergency (ER) | payer MEDICARE, OTHER ==
[~2024-07-22] VITALS: Ht 162.6 cm; Wt 67.6 kg
[2024-07-22 20:39] VITALS: BP 121/64; TEMP 98.4; O2SAT 96
[2024-07-22] MEDS ORDERED: PSEU120T83 PO (22:00)
[2024-07-22] MEDS ORDERED: BENZ-13 PO (22:00)
[2024-07-22] MEDS ORDERED: GUAI400T93 PO (22:00)
[2024-07-22] MEDS ORDERED: BENZONATATE 100 MG CAPSULE PO ONE (22:03)
[2024-07-22] MEDS: BENZONATATE 100 MG CAPSULE PO PRN (22:06)
== END 2024-07-22 22:06 | disposition home or self-care (01) ==
LOC: ER 19:25
DX: J01.90 Acute sinusitis, unspecified (principal); B97.89 Other viral agents as the cause of diseases classified elsewhere; J45.901 Unspecified asthma with (acute) exacerbation; Z79.51 Long term (current) use of inhaled steroids; Z79.52 Long term (current) use of systemic steroids

== ENCOUNTER 2024-09-30 11:06 | Emergency (ER) | payer MEDICARE ==
[~2024-09-30] VITALS: Ht 160 cm; Wt 66.2 kg
[~2024-09-30 11:06] MED LIST changes: +GUAI400T93 PO; +PSEU120T83 PO
[2024-09-30] MEDS ORDERED: BUDE0.253 IH (11:34)
[2024-09-30] MEDS ORDERED: ALBU18HF2 INH (11:35)
[2024-09-30 11:52] VITALS: BP 137/84; TEMP 98.5; O2SAT 99
[2024-09-30] MEDS ORDERED: BUDE180A INH (12:31)
== END 2024-09-30 11:52 | disposition home or self-care (01) ==
LOC: ER 11:10
DX: J45.901 Unspecified asthma with (acute) exacerbation (principal); Z79.51 Long term (current) use of inhaled steroids; Z79.52 Long term (current) use of systemic steroids; R05.9 Cough, unspecified